=== PATIENT | male | born 1955 | race Two or more races ===

== ENCOUNTER 2023-05-19 05:15 | Day surgery (SDC) | payer OTHER | END 2023-05-19 11:35 | disposition home or self-care (01) | LOC: AMB-ENDOS 05:15 | PROVIDERS: ATTEND Surgery | DX: K63.5 Polyp of colon (principal); K64.8 Other hemorrhoids; Z20.822 Contact with and (suspected) exposure to COVID-19 ==

== ENCOUNTER 2023-06-23 06:00 | Day surgery (SDC) | payer OTHER | END 2023-06-23 12:20 | disposition home or self-care (01) | LOC: AMB-ENDOS 06:00 | PROVIDERS: ATTEND Surgery | DX: D12.3 Benign neoplasm of transverse colon (principal); K64.8 Other hemorrhoids; Z20.822 Contact with and (suspected) exposure to COVID-19; Z88.0 Allergy status to penicillin ==